=== PATIENT | male | born 1985 | race African-American/Black ===

== ENCOUNTER 2016-11-29 03:01 | Emergency (ER) | payer BC ==
[2016-11-29 03:14] VITALS: BP 151/93
--- NOTE | 2016-11-29 03:56 | EDM.PDOC ---
ED HPI GI/ABDOMINAL - General Chief Complaint: Abdominal Pain Stated Complaint: AB PAIN Time Seen by Provider: 11/29/16 03:36 Source of Information: Reports: Patient History Limitations: Reports: No limitations - History of Present Illness INITIAL COMMENTS - FREE TEXT/NARRATIVE: this is a 31-year-old male. This evening he apparently had several bouts of diarrhea after which she had a sudden sharp pain in the right lower quadrant of his abdomen like a very severe cramp. He's had no symptoms since that time no more diarrhea no more belly pain. He's had no vomiting no nausea no fever. He states he feels fine now but he comes to the ER for evaluation. He denies eating anything that might have upset his stomach or caused him diarrhea. He denies any other acute symptoms. - Related Data Allergies/ADRs: Allergies Allergy/AdvReac Type Severity Reaction Status Date / Time No Known Allergies Allergy Verified 11/29/16 03:14 Home Meds: Home Meds . [No Known Home Meds] 11/29/16 [History] Past Medical History - Infectious Disease History Infectious Disease History: Reports: Chicken pox Social & Family History - Tobacco Use Smoking Status *Q: Never Smoker - Caffeine Use Caffeine Use: Reports: None - Recreational Drug Use Recreational Drug Use: No ED ROS GENERAL - Review of Systems Review Of Systems: See Below Constitutional: Denies: fever, chills HEENT: Reports: No symptoms Respiratory: Reports: no symptoms Cardiovascular: Reports: No symptoms Endocrine: Reports: no symptoms GI/Abdominal: Reports: Abdominal pain, Diarrhea. Denies: Nausea, Vomiting : Reports: no symptoms Musculoskeletal: Reports: no symptoms Skin: Reports: no symptoms Neurological: Reports: no symptoms Psychiatric: Reports: No symptoms Hematologic/Lymphatic: Reports: no symptoms Immunologic: Reports: no symptoms ED EXAM, GI/ABD - Physical Exam Exam: See Below Exam Limited By: No limitations General Appearance: alert, WD/WN, no apparent distress Eyes: bilateral: normal appearance Ears: normal external exam Nose: normal inspection Throat/Mouth: Normal inspection, Normal lips, Normal voice Head: normocephalic Neck: supple Respiratory/Chest: no respiratory distress, lungs clear, normal breath sounds Cardiovascular: regular rate, rhythm, no murmur GI/Abdominal: normal bowel sounds, soft, non tender. No: tenderness, distention , guarding, rebound, rigidity, McBurney's sign, Palacios's sign Back Exam: full range of motion Extremities: normal inspection, normal range of motion Neurological: alert, oriented Psychiatric: normal affect, normal mood Skin Exam: Warm, Dry Course - Vital Signs Last Recorded V/S: Last Vital Signs Temp 97.4 F 11/29/16 03:09 Pulse 68 11/29/16 03:09 Resp BP 151/93 H 11/29/16 03:09 Pulse Ox 97 11/29/16 03:09 - Orders/Labs/Meds Labs: Laboratory Tests 11/29/16 11/29/16 Range/Units 04:00 04:00 WBC 6.07 (4.23-9.07) K/mm3 RBC 5.40 (4.63-6.08) M/mm3 Hgb 15.7 (13.7-17.5) gm/L Hct 43.4 (40.1-51.0) % MCV 80.4 (79.0-92.2) fl MCH 29.1 (25.7-32.2) pg MCHC 36.2 H (32.2-35.5) g/dl RDW Std Deviation 39.1 (35.1-43.9) fL Plt Count 224 (163-337) K/mm3 MPV 11.6 (9.4-12.3) fl Neut % (Auto) 42.9 (34.0-67.9) % Lymph % (Auto) 45.3 (21.8-53.1) % Sanborn % (Auto) 8.1 (5.3-12.2) % Eos % (Auto) 2.8 (0.8-7.0) Baso % (Auto) 0.7 (0.1-1.2) % Neut # 2.61 (1.78-5.38) K/mm3 Lymph # 2.75 (1.32-3.57) K/mm3 Sanborn # 0.49 (0.30-0.82) K/mm3 Eos # 0.17 (0.04-0.54) K/mm3 Baso # 0.04 (0.01-0.08) K/mm3 Sodium 141 (136-145) mEq/L Potassium 3.9 (3.5-5.1) mEq/L Chloride 105 (98-107) mEq/L Carbon Dioxide 28 (21-32) mEq/L Anion Gap 11.9 (5-15) BUN 14 (7-18) mg/dL Creatinine 1.0 (0.7-1.3) mg/dL Est Cr Clr Drug Dosing 98.36 mL/min Estimated GFR (MDRD) > 60 (>60) mL/min BUN/Creatinine Ratio 14.0 (14-18) Glucose 87 (74-106) mg/dL Calcium 9.6 (8.5-10.1) mg/dL Total Bilirubin 0.7 (0.2-1.0) mg/dL AST 25 (15-37) U/L ALT 52 (16-63) U/L Alkaline Phosphatase 63 (46-116) U/L Total Protein 7.8 (6.4-8.2) g/dl Albumin 4.3 (3.4-5.0) g/dl Globulin 3.5 gm/dL Albumin/Globulin Ratio 1.2 (1-2) - Re-Assessments/Exams Free Text/Narrative Re-Assessment/Exam: 11/29/16 04:41 I spoke to the patient regarding his test results. Departure - Departure Time of Disposition: 04:42 Disposition: Home, Self-Care 01 Condition: good Clinical Impression: Abdominal cramping Diarrhea Qualifiers: Diarrhea type: unspecified type Qualified Code(s): R19.7 - Diarrhea, unspecified Forms: ED Department Discharge Additional Instructions: lots of fluids today, avoid caffeine, eat foods that are easy to digest such as oatmeal yogurt bananas and crackers for the next 24 hours, then resume a normal diet on Wednesday, return to the ER if your symptoms worsen
== END 2016-11-29 04:56 | disposition home or self-care (01) ==
LOC: MERGE 03:01 → JD.ED 03:01
DX: R10.31 Right lower quadrant pain (principal); R19.7 Diarrhea, unspecified
CPT/HCPCS: 36415; 80053; 85025; 99282; 99284